=== PATIENT | male | born 1990 | race Caucasian/White ===

== ENCOUNTER 2018-03-07 06:58 | Emergency (ER) | payer OTHER, BC ==
[2018-03-07 07:04] VITALS: BP 153/83
[2018-03-07] MEDS ORDERED: LIDOCAINE 4%/MENTHOL 1% PATCH TD ONE (07:43)
--- NOTE | 2018-03-07 07:49 | EDPHY ---
H & P Stated Complaint: low back pain from getting out of a van this morning Time Seen by Provider: 03/07/18 07:36 HPI/ROS: CHIEF COMPLAINT: Low back pain HISTORY OF PRESENT ILLNESS: 27-year-old male presents with low back pain. He was getting out of a van this morning when he had sudden onset of moderate lower back pain and spasm. Difficulty standing up initially because of pain. Took ibuprofen with some relief. No radiation of pain, numbness or weakness. History of prior intermittent low back pain. REVIEW OF SYSTEMS: complete 10 point ROS reviewed and is negative except for the noted elements in the HPI - Personal History Current Tetanus Diphtheria and Acellular Pertussis (TDAP): Yes - Medical/Surgical History Other PMH: healthy - Social History Smoking Status: Current every day smoker Alcohol Use: Sober Additional Social History: Lives in [place], here for work - Physical Exam Exam: General Appearance: Alert, pleasant Eyes: Pupils equal and round, no conjunctival pallor ENT, Mouth: Mucous membranes moist Neck: Normal inspection Gastrointestinal: Abdomen is soft and nontender Back: Normal inspection, no tenderness, range of motion causes pain Neurological: A&O, motor 5/5, patellar DTRs 2+, normal gait Skin: Warm and dry, no rash Extremities: Normal inspection Psychiatric: Mood and affect normal Constitutional: Initial Vital Signs Temperature (C) 36.7 C 03/07/18 07:00 Heart Rate 88 03/07/18 07:00 Respiratory Rate 16 03/07/18 07:00 Blood Pressure 153/83 H 03/07/18 07:00 O2 Sat (%) 97 03/07/18 07:00 Allergies/Adverse Reactions: No Known Allergies Allergy (Unverified 03/07/18 07:01) Home Medications: Medication Instructions Recorded NK [No Known Home Meds] 03/07/18 Medical Decision Making ED Course/Re-evaluation: This patient presents with low back strain. Ibuprofen 600 mg orally given. A lidocaine patch was placed. Warning signs discussed. Differential Diagnosis: Differential diagnosis for back pain includes muscular pain, herniated disc, epidural abscess, discitis, spine fracture, intra-abdominal causes and urinary tract infection. - Data Points Medications Given: Discontinued Medications Miscellaneous Medication (Icy Hot Lidocaine/Menthol 4%/1% Patch) 1 patch TD EDNOW ONE Stop: 03/07/18 07:44 Last Admin: 03/07/18 07:54 Dose: 1 patch Departure - Departure Disposition: Home, Routine, Self-Care Clinical Impression: Low back strain Qualifiers: Encounter type: initial encounter Qualified Code(s): S39.012A - Strain of muscle, fascia and tendon of lower back, initial encounter Condition: Good Instructions: Low Back Strain (ED), Lower Back Exercises (ED) Additional Instructions: Ibuprofen 600 mg 3 times daily while the pain persists. Use a lidocaine patch as directed on the packaging. Avoid heavy lifting and bending. Referrals: June Naranjo MD [Medical Doctor] - As per Instructions
[2018-03-07] MEDS ORDERED: PATCH REMOVAL 1 EA PATCH TD SCH (21:00)
== END 2018-03-07 07:55 | disposition home or self-care (01) ==
DX: S39.012A Strain of muscle, fascia and tendon of lower back, initial encounter (principal); F17.200 Nicotine dependence, unspecified, uncomplicated; X58.XXXA Exposure to other specified factors, initial encounter; Y99.0 Civilian activity done for income or pay